=== PATIENT | male | born 2000 | race Caucasian/White ===

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

== ENCOUNTER 2021-02-11 03:04 | Emergency (ER) | payer SELFPAY ==
[2021-02-11] MEDS ORDERED: diphenhydrAMINE 50 MG/ML VIAL ONE (03:47)
[2021-02-11] MEDS ORDERED: Ketorolac Tromethamine 30 MG/ML VIAL ONE (03:47)
[2021-02-11] MEDS ORDERED: Metoclopramide HCl 10 MG/2 ML VIAL ONE (03:48)
[2021-02-11 04:14] LABS: #Monocytes 0.6 10x3/uL (0.0-1.1); #Neutrophils 5.5 10x3/uL (1.5-8.4); %Basophils 0.3 % (0.0-2.0); %Eosinophils 0.5 % (0.0-6.0); %Lymphocytes 16.8 % (18.0-47.0); %Monocytes 7.5 % (0.0-10.0); %Neutrophils 74.4 % (40.0-75.0); Mean Corpuscular HGB CONC 34.2 g/dL (32.0-36.0); Mean Corpuscular Hemoglobin 28.6 pg (27.0-33.0); Mean Corpuscular Volume 83.5 fl (81.2-95.1); Mean Platelet Volume 9.9 fl (7.4-10.4); Platelet Count 197 10x3/uL (150-450); RBC Distribution Width 11.8 % (11.5-14.5); White Blood Cell (WBC) Count 7.3 10x3/uL (3.5-10.5)
[2021-02-11 04:46] LABS: ALT (SGPT) 9 U/L (8-55); AST (SGOT) 17 U/L (10-45); Albumin 4.3 g/dL (3.5-5.0); Alkaline Phosphatase 70 U/L (50-130); Anion Gap 15 mmol/L (10-20); BUN (Urea Nitrogen) 9 mg/dL (8.4-21.0); Bilirubin, Total 0.6 mg/dL (0.2-1.2); Calc. Creatinine Clearance 0 mL/min (70-130); Calcium 9.1 mg/dL (7.8-10.44); Carbon Dioxide 26 mmol/L (22-29); Chloride 102 mmol/L (98-107); Globulin 3.1 g/dL (2.4-3.5); Glucose 92 mg/dL (70-105); Potassium 3.7 mmol/L (3.5-5.1); Protein, Total 7.4 g/dL (6.0-8.3); Sodium 139 mmol/L (136-145)
[2021-02-11 06:13] LABS: SARS-CoV-2 NAA Rapid Test DETECTED (NotDetected)
== END 2021-02-11 06:28 | disposition home or self-care (01) ==
LOC: CSHERS 03:04
DX: U07.1 COVID-19 (principal); F17.290 Nicotine dependence, other tobacco product, uncomplicated
CPT/HCPCS: 0240U; 80053; 85025; 96365; 96375; J1200; J1885; J2765

== ENCOUNTER 2024-11-26 17:00 | Emergency (ER) | payer BC, OTHER | END 2024-11-26 18:52 | disposition home or self-care (01) | LOC: CSHERS 17:00 | DX: S09.90XA Unspecified injury of head, initial encounter (principal); M79.661 Pain in right lower leg; F17.290 Nicotine dependence, other tobacco product, uncomplicated; V43.52XA Car driver injured in collision with other type car in traffic accident, initial encounter | CPT/HCPCS: 72040; 99284 ==

== ENCOUNTER 2024-12-02 17:14 | Emergency (ER) | payer BC, OTHER | END 2024-12-02 18:12 | disposition home or self-care (01) | LOC: CSHERS 17:14 | DX: S61.210A Laceration without foreign body of right index finger without damage to nail, initial encounter (principal); F17.290 Nicotine dependence, other tobacco product, uncomplicated; Z55.6 Problems related to health literacy; W26.0XXA Contact with knife, initial encounter; Y93.89 Activity, other specified | CPT/HCPCS: 12001; 99282 ==